=== PATIENT | female | born 1980 | race African-American/Black ===

== ENCOUNTER 2018-01-05 08:26 | Day surgery (SDC) | payer OTHER ==
[2018-01-02 16:12] VITALS: BMI 29.9
[2018-01-05] MEDS ORDERED: MIDAZOLAM HCL 2 MG/2 ML SINGLE DOSE VIAL ONE (11:22)
[2018-01-05] MEDS ORDERED: methylPREDNISolone ACET (DEPO) 40 MG/1 ML VIAL ONE (11:23)
[2018-01-05] MEDS ORDERED: BUPIVACAINE HCL 0.25% 125 MG/50 ML VIAL ONE (11:23)
[2018-01-05] MEDS ORDERED: DEXAMETHASONE SOD PHOSPHATE 4 MG/1 ML VIAL ONE (11:59)
[2018-01-05] MEDS ORDERED: ONDANSETRON 4 MG/2 ML VIAL ONE (11:59)
[2018-01-05] MEDS ORDERED: methylPREDNISolone ACET (DEPO) 40 MG/1 ML VIAL IM ONE (12:30)
[2018-01-05] MEDS ORDERED: BUPIVACAINE HCL/PF 0.25% (2.5MG/ML) 10 ML VIAL IJ ONE (12:30)
[2018-01-05] MEDS ORDERED: ONDANSETRON 4 MG/2 ML VIAL IVPUSH PRN (12:46)
[2018-01-05] MEDS ORDERED: oxyCODONE HCL 5 MG TABLET PO PRN (12:46)
[2018-01-05] MEDS ORDERED: LACTATED RINGERS SOLUTION 1,000 ML IV SCH (13:00)
[2018-01-05 15:40] VITALS: BP 136/70; PULSE 76; TEMP 98.1
--- NOTE | 2018-01-05 22:01 | OP ---
DATE OF OPERATION: 01/05/2018 SURGEON: Sunil Ryder MD COMPUTER ANALYST: Tramaine Ryder MD PREOPERATIVE DIAGNOSIS: Medial meniscal tear. POSTOPERATIVE DIAGNOSIS: Thickened ligamentum mucosae in the intercondylar notch. ANTIBIOTICS GIVEN: Kefzol 2 g. PROCEDURE: Patient correctly identified, brought in the operating room. The left lower extremity was prepped with Betadine scrub solution, wiped off with alcohol, DuraPrep applied. An anterolateral portal was utilized as was an anteromedial portal. The arthroscope instrumentation was introduced into the knee appropriately. The arthroscopy revealed the following: Suprapatellar pouch and remaining synovium revealed no significant synovitis. The trochlear groove and the patellofemoral articulation appeared well maintained and normal. The hyaline cartilage throughout both left- and right-hand side of the femoral condyles was normal. The medial and lateral compartments of the joints were carefully inspected. A probe was utilized to palpate the menisci and this revealed that both medial and lateral menisci were completely intact and there was no tear in these menisci at all. The intercondylar notch was evaluated and found to have thickened ligamentum mucosae. This was shaved appropriately away, and this also extended onto the anterior aspect of the medial meniscus. To trim the medial meniscus very slightly; therefore, a medial partial meniscectomy was performed as well as the resection of this ligamentum mucosae. The wound was thoroughly lavaged. The wounds were closed with nylon 3-0 and a light dressing applied. No complications. MD GREG [id number]
== END 2018-01-05 15:44 | disposition home or self-care (01) ==
LOC: FASU 08:26
PROVIDERS: ATTEND Orthopaedic Surgery Orthopaedic Surgery of the Spine
PROC: 0SBD4ZZ Excision of Left Knee Joint, Percutaneous Endoscopic Approach (ICD-10-PCS; principal; 2018-01-05 10:45)
DX: M25.861 Other specified joint disorders, right knee (principal)
CPT/HCPCS: 84703; 94760